=== PATIENT | female | born 1930 | race Caucasian/White ===

== ENCOUNTER 2018-08-21 10:02 | Emergency (ER) | payer MEDICARE ==
[~2018-08-21 10:02] MED LIST: ASPI-555 PO; LOSA50TA25 PO; LOVASTATIN PO; METOPROLOL PO
== END 2018-08-21 12:12 | disposition home or self-care (01) ==
LOC: EDH 10:02
DX: S90.01XA Contusion of right ankle, initial encounter (principal); I10 Essential (primary) hypertension; E78.5 Hyperlipidemia, unspecified; Z87.891 Personal history of nicotine dependence; W22.8XXA Striking against or struck by other objects, initial encounter; Y93.89 Activity, other specified; Y92.89 Other specified places as the place of occurrence of the external cause; Y99.8 Other external cause status
CPT/HCPCS: 73590; 73610

== ENCOUNTER 2019-06-04 11:10 | Emergency (ER) | payer MEDICARE ==
[~2019-06-04 11:10] MED LIST changes: -LOSA50TA25 PO; +LOSA50TA64 PO
== END 2019-06-04 12:00 | disposition home or self-care (01) ==
LOC: EDH 11:10
DX: S40.011A Contusion of right shoulder, initial encounter (principal); I10 Essential (primary) hypertension; E78.5 Hyperlipidemia, unspecified; W18.39XA Other fall on same level, initial encounter; Y93.89 Activity, other specified; Y92.098 Other place in other non-institutional residence as the place of occurrence of the external cause; Y99.8 Other external cause status
CPT/HCPCS: 73030